=== PATIENT | male | born 1950 | race Caucasian/White ===

== ENCOUNTER → 2017-11-17 | Outpatient (CLI) | payer MEDICARE, BC ==
[~2017-11-17] MED LIST: ALLO100T30 PO; ASPI-496 PO; ATOR20TA PO; HYDR-3237 PO; HYDR12.58 PO; LANS30CA PO; LISI-167 PO; METF500T27 PO; METO25TA91 PO; SILD100T PO
== END | disposition home or self-care (01) ==
LOC: CVU 07:20
PROVIDERS: ATTEND Internal Medicine Cardiovascular Disease
DX: I65.23 Occlusion and stenosis of bilateral carotid arteries (principal); I10 Essential (primary) hypertension; G47.30 Sleep apnea, unspecified; E11.9 Type 2 diabetes mellitus without complications; I25.810 Atherosclerosis of coronary artery bypass graft(s) without angina pectoris; Z95.1 Presence of aortocoronary bypass graft
CPT/HCPCS: 78452; 93017; 93880; A9502

== ENCOUNTER 2021-01-05 12:25 | Outpatient (CLI) | payer MEDICARE ==
[~2021-01-05 12:25] MED LIST changes: -HYDR12.58 PO; +HYDROCHLOROTH12.5 MG PO
== END 2021-01-05 23:59 | disposition home or self-care (01) ==
LOC: CVU 12:25
PROVIDERS: ATTEND Internal Medicine Cardiovascular Disease
DX: I35.8 Other nonrheumatic aortic valve disorders (principal); I48.0 Paroxysmal atrial fibrillation; I10 Essential (primary) hypertension; I49.3 Ventricular premature depolarization; E78.5 Hyperlipidemia, unspecified; E11.9 Type 2 diabetes mellitus without complications; Z95.1 Presence of aortocoronary bypass graft; Z79.01 Long term (current) use of anticoagulants; Z95.0 Presence of cardiac pacemaker
CPT/HCPCS: 93306

== ENCOUNTER → 2021-02-05 | Outpatient (CLI) | payer MEDICARE ==
[~2021-02-05] MED LIST changes: +OMNIPAQUE 350 MG/ML, 150 ML BOTTLE ONE
== END | disposition home or self-care (01) ==
LOC: CFH 14:20
PROVIDERS: ATTEND Internal Medicine Cardiovascular Disease
DX: I48.0 Paroxysmal atrial fibrillation (principal)
CPT/HCPCS: 75572; Q9967

== ENCOUNTER 2021-03-02 06:51 | Inpatient (IN) | payer MEDICARE ==
[~2021-03-02] VITALS: Ht 177.8 cm; Wt 119.3 kg
[~2021-03-02 06:51] MED LIST changes: -OMNIPAQUE 350 MG/ML, 150 ML BOTTLE ONE
[2021-03-02] MEDS ORDERED: METO25TA91 PO (07:49)
[2021-03-02] MEDS ORDERED: RIVA10TA2 PO (07:49)
[2021-03-02] MEDS ORDERED: TAMS-11 PO (07:53)
[2021-03-02] MEDS ORDERED: SITA25TA PO (07:53)
[2021-03-02] MEDS ORDERED: ONDANSETRON 2MG/ML, 2ML IVPush PRN (08:00)
[2021-03-02] MEDS ORDERED: CEFAZOLIN 1,000 MG IVPush ONE (08:00)
[2021-03-02] MEDS ORDERED: SODIUM CHLORIDE 0.9%, 500ML IVBOLUS ONE (08:00)
[2021-03-02 08:08] LABS: BASOPHILS % (AUTO) 1 % (0-1); EOSINOPHILS % (AUTO) 2 % (1-7); LYMPHOCYTES % (AUTO) 21 % (22-44); MEAN CORPUSCULAR HEMOGLOBIN 33.3 pg (27.5-34.5); MEAN CORPUSCULAR HGB CONC 33.7 g/dL (33.2-36.2); MEAN PLATELET VOLUME 8.9 fL (7.4-10.4); MONOCYTES % (AUTO) 10 % (2-9); NEUTROPHILS % (AUTO) 66 % (42-75); PLATELET COUNT 178 x10^3/uL (130-400); RED BLOOD COUNT 4.88 x10^6/uL (4.38-5.82); RED CELL DISTRIBUTION WIDTH 14.1 % (9.4-14.8)
[2021-03-02 08:15] LABS: INTERNATIONAL NORMALIZED RATIO 1.08 (0.93-1.1); PROTHROMBIN TIME 11.5 Seconds (9.6-11.5)
[2021-03-02 08:17] LABS: ANION GAP 9 mmol/L (5-15); CALCIUM 8.9 mg/dL (8.5-10.1); CHLORIDE 111 mmol/L (98-107); CREATININE 1.13 mg/dL (0.7-1.3)
[2021-03-02] MEDS ORDERED: FENTANYL PF 250 MCG/5ML ONE (09:29)
[2021-03-02] MEDS ORDERED: ONDANSETRON 2MG/ML, 2ML ONE (09:51)
[2021-03-02] MEDS ORDERED: ROCURONIUM 10MG/ML,5ML ONE (09:51)
[2021-03-02] MEDS ORDERED: SUCCINYLCHOLINE 20 MG/ML, 10ML ONE (09:51)
[2021-03-02] MEDS ORDERED: DEXAMETHASONE 4 MG/ML, 1ML ONE (09:51)
[2021-03-02] MEDS ORDERED: HEPARIN 1,000 UNITS/ML, 10ML ONE ×2 (09:51)
[2021-03-02] MEDS ORDERED: PROPOFOL 10 MG/ML, 20ML ONE (09:52)
[2021-03-02] MEDS: SODIUM CHLORIDE 0.9% 1,000 ML IV SCH ×2 (11:30→21:30)
[2021-03-02] MEDS ORDERED: ONDANSETRON 2MG/ML, 2ML IV PRN (11:30)
[2021-03-02] MEDS: ASPIRIN 81 MG TABLET EC PO SCH (11:30)
[2021-03-02] MEDS ORDERED: MAALOX/HYOSCYAMINE/LIDOCAINE 45 ML BTL PO PRN (11:30)
[2021-03-02] MEDS ORDERED: ACETAMINOPHEN 325 MG TABLET PO PRN (11:30)
[2021-03-02 12:50] VITALS: BP 115/71
[2021-03-02 18:37] VITALS: BP 127/77
[2021-03-02] MEDS ORDERED: ATORVASTATIN 40 MG TABLET PO SCH (21:00)
[2021-03-02 23:36] VITALS: BP 107/64
[2021-03-03 05:03] LABS: BASOPHILS % (AUTO) 0 % (0-1); EOSINOPHILS % (AUTO) 0 % (1-7); LYMPHOCYTES % (AUTO) 8 % (22-44); MEAN CORPUSCULAR HEMOGLOBIN 32.9 pg (27.5-34.5); MEAN CORPUSCULAR HGB CONC 33.4 g/dL (33.2-36.2); MONOCYTES % (AUTO) 7 % (2-9); NEUTROPHILS % (AUTO) 86 % (42-75); PLATELET COUNT 191 x10^3/uL (130-400); RED BLOOD COUNT 4.55 x10^6/uL (4.38-5.82)
[2021-03-03 05:11] LABS: CHLORIDE 109 mmol/L (98-107)
[2021-03-03 05:25] LABS: ANION GAP 6 mmol/L (5-15); CALCIUM 8.4 mg/dL (8.5-10.1)
[2021-03-03] MEDS ORDERED: PANTOPRAZOLE 40MG TABLET PO SCH (06:00)
[2021-03-03 06:53] VITALS: BP 136/75
[2021-03-03] MEDS: SODIUM CHLORIDE 0.9% 1,000 ML IV SCH (07:21)
[2021-03-03] MEDS ORDERED: ACET325T26 PO (08:48)
[2021-03-03] MEDS ORDERED: METOPROLOL SUCCINATE 25 MG TAB.ER.24H PO SCH (09:00)
[2021-03-03] MEDS ORDERED: ALLOPURINOL 100 MG TABLET PO SCH (09:00)
[2021-03-03] MEDS ORDERED: SITAGLIPTIN PHOSPHATE 25 MG PO SCH (09:00)
[2021-03-03] MEDS ORDERED: LISINOPRIL 10 MG TABLET PO SCH (09:00)
[2021-03-03] MEDS ORDERED: TAMSULOSIN 0.4 MG CAP.ER.24H PO SCH (09:00)
[2021-03-03] MEDS ORDERED: metFORMIN XR 500 MG TAB.ER.24H PO SCH (09:00)
[2021-03-03] MEDS ORDERED: HYDROCHLOROTHIAZIDE 12.5 MG CAPSULE PO SCH (09:00)
[2021-03-03] MEDS ORDERED: RIVAROXABAN 20 MG TABLET PO SCH (09:00)
[2021-03-03] MEDS: ASPIRIN 81 MG TABLET EC PO SCH (09:13)
== END 2021-03-03 11:00 | disposition home or self-care (01) | DRG 274 ==
LOC: ORIP 06:51 → 5SO 12:12 → DCLOUNGE 03-03 10:40
PROVIDERS: ADMIT Internal Medicine Cardiovascular Disease; ATTEND Internal Medicine Cardiovascular Disease
PROC: B24BZZ4 Ultrasonography of Heart with Aorta, Transesophageal (ICD-10-PCS; 2021-03-02)
PROC: 02L73DK Occlusion of Left Atrial Appendage with Intraluminal Device, Percutaneous Approach (ICD-10-PCS; principal; 2021-03-02 09:30)
DX: I48.91 Unspecified atrial fibrillation (principal); Z00.6 Encounter for examination for normal comparison and control in clinical research program; I48.92 Unspecified atrial flutter; I25.10 Atherosclerotic heart disease of native coronary artery without angina pectoris; I10 Essential (primary) hypertension; Z20.822 Contact with and (suspected) exposure to COVID-19; E78.2 Mixed hyperlipidemia; Z95.1 Presence of aortocoronary bypass graft; Z95.0 Presence of cardiac pacemaker; Z79.899 Other long term (current) drug therapy
CPT/HCPCS: 33340; 36415; 71045; 80048; 83880; 85025; 85347; 85610; 86850; 86900; 87635; 93005; 93308; 93312; 93321; 93325; 93355; C1760; C1766; C1769; C1893; C1894; G0378; J1100; J1644; J2405; J2704; J3010; J0330; J7040; Q9967

== ENCOUNTER 2021-04-06 06:05 | Day surgery (SDC) | payer MEDICARE ==
[~2021-04-06] VITALS: Ht 177.8 cm; Wt 115.9 kg
[~2021-04-06 06:05] MED LIST changes: +ACET325T26 PO; +RIVA10TA2 PO; +SITA25TA PO; +TAMS-11 PO
[2021-04-06] MEDS ORDERED: METO25TA2 PO (06:27)
[2021-04-06 06:28] VITALS: BP 151/88
[2021-04-06] MEDS ORDERED: SODIUM CHLORIDE 0.9% 1,000 ML IV ONE (06:30)
[2021-04-06] MEDS ORDERED: PROPOFOL 10 MG/ML, 20ML ONE (07:19)
== END 2021-04-06 08:37 | disposition home or self-care (01) ==
LOC: CACL 06:05
PROVIDERS: ATTEND Internal Medicine Cardiovascular Disease
DX: I48.0 Paroxysmal atrial fibrillation (principal); I70.0 Atherosclerosis of aorta; I25.810 Atherosclerosis of coronary artery bypass graft(s) without angina pectoris; I44.1 Atrioventricular block, second degree; I49.3 Ventricular premature depolarization; I10 Essential (primary) hypertension; E78.2 Mixed hyperlipidemia; E11.9 Type 2 diabetes mellitus without complications; N40.0 Benign prostatic hyperplasia without lower urinary tract symptoms; Z79.01 Long term (current) use of anticoagulants; Z79.82 Long term (current) use of aspirin; Z79.84 Long term (current) use of oral hypoglycemic drugs; Z79.891 Long term (current) use of opiate analgesic; Z79.899 Other long term (current) drug therapy; Z88.8 Allergy status to other drugs, medicaments and biological substances; Z95.0 Presence of cardiac pacemaker
CPT/HCPCS: 93312; 93321; 93325; J2704